=== PATIENT | male | born 1975 | race Caucasian/White ===

== ENCOUNTER 2016-11-14 19:57 | Inpatient (IN) | payer OTHER ==
[~2016-11-14] VITALS: Ht 180.3 cm; Wt 93.7 kg
[~2016-11-14 19:57] MED LIST: DELSYM PO; DEPAKOTE500 MG PO; GEODON40 MG PO; MOTRIN800 MG PO; PEN-VEE K,VEET500 MG PO; SEROQUEL100 MG PO; TENEX1 M1 PO; TYLENOL W/COD1 COMB1 PO
[2016-11-14 20:45] LABS: HEMATOCRIT 23.7 % (38.0-50.0); MCH 33.2 PG (29.0-34.0); MCHC 37.1 G/DL (30.0-36.0); MCV 89.4 FL (86-99); MEAN PLAT.VOLUME 9.9 uM^3 (9.0-12.4); PLATELET COUNT 240 K/uL (156-360); RBC DIS.WIDTH-CV 11.9 % (11.8-14.6); RBC DIS.WIDTH-SD 38.1 % (39-53); RED BLOOD COUNT 2.65 M/uL (4.00-5.50); WHITE BLOOD COUNT 16.4 K/uL (4.1-10.2)
[2016-11-14 20:54] LABS: CHLORIDE 96 mEq/L (99-109); POTASSIUM 4.4 mEq/L (3.7-5.4); SODIUM 130 mEq/L (136-147)
[2016-11-14 20:57] LABS: ANION GAP 12 MEQ/L (2-14)
[2016-11-14 20:59] LABS: THC CANNABINOIDS NEGATIVE (50 ng/mL)
[2016-11-14 20:59] LABS: SERUM ETHYL ALCOHOL < 10 mg/dL
[2016-11-14 21:00] LABS: AMPHETAMINE NEGATIVE (500 ng/mL); BARBITURATES NEGATIVE (200 ng/mL); BENZODIAZEPINES NEGATIVE (150 ng/mL); COCAINE NEGATIVE (150 ng/mL); INTERNAL CONTROLS VALID? YES; METHADONE NEGATIVE (200 ng/mL); METHAMPHETAMINE NEGATIVE (500 ng/mL); OPIATES (MORPHINE) NEGATIVE (100 ng/mL); OXYCODONE NEGATIVE (100 ng/mL); PHENCYCLIDINE NEGATIVE (25 ng/mL); PROPOXYPHENE NEGATIVE (300 ng/mL); TRICYCLIC ANTIDEPRESSANTS NEGATIVE (300 ng/mL)
[2016-11-14 21:00] LABS: GFR ESTIMATE (CALCULATED) 45 mL/min/
[2016-11-14 21:01] LABS: UREA NITROGEN (BUN) 30 mg/dL (9-23)
[2016-11-14 21:09] LABS: GLUCOSE 491 mg/dL (70-99)
[2016-11-14 22:55] LABS: POINT-OF-CARE METER ID UU14100415
[2016-11-15 03:04] VITALS: BP 118/86
[2016-11-15] MEDS ORDERED: LITHIUM CARBON300 M1 PO (03:12)
[2016-11-15] MEDS ORDERED: GLUCOPHAGE500 MG PO (03:25)
[2016-11-15] MEDS ORDERED: TRAZODONE HCL50 MG PO (03:38)
[2016-11-15] MEDS ORDERED: ADDERALL5 MG PO (04:51)
[2016-11-15] MEDS ORDERED: KEPPRA1000 MG PO (04:52)
[2016-11-15] MEDS ORDERED: CELEXA20 MG PO (04:54)
[2016-11-15] MEDS ORDERED: ABILIFY10 MG PO (04:55)
[2016-11-15 05:35] LABS: POINT-OF-CARE METER ID UU14188576
[2016-11-15 08:27] VITALS: BP 110/56
[2016-11-15 08:27] LABS: POINT-OF-CARE METER ID UU14188576
[2016-11-15 12:10] LABS: POINT-OF-CARE METER ID UU14188576
[2016-11-15 15:42] VITALS: BP 115/55
[2016-11-15 17:06] LABS: POINT-OF-CARE METER ID UU14188576
[2016-11-15 17:19] LABS: POINT-OF-CARE METER ID UU14188576
[2016-11-15 21:22] LABS: POINT-OF-CARE METER ID UU14188576
[2016-11-16 06:19] LABS: POINT-OF-CARE METER ID UU14188576; POINT-OF-CARE USER ID BHSSMG
[2016-11-16 07:06] VITALS: BP 105/52
[2016-11-16 07:32] LABS: EOSINOPHIL (%) 1.6 % (0-5); EOSINOPHIL COUNT 0.1 K/uL (0-0.3); IMMATURE GRANULOCYTE (%) 0.4 % (0.0-0.7); INSTRUMENT ABS NEUTROPHIL CT 2.8 K/uL; LYMPHOCYTE COUNT 1.8 K/uL (1.0-2.8); MCH 34.4 PG (29.0-34.0); MCHC 36.5 G/DL (30.0-36.0); MEAN PLAT.VOLUME 9.8 uM^3 (9.0-12.4); MONOCYTE (%) 7.2 % (3-12); MONOCYTE COUNT 0.4 K/uL (0-0.8); NEUTROPHIL (%) 55.4 % (45-76); NEUTROPHIL COUNT 2.8 K/uL (1.8-6.4); NRBC (%) 0.4 /100 WBC (0-0); PLATELET COUNT 180 K/uL (156-360); RBC DIS.WIDTH-CV 12.3 % (11.8-14.6); RBC DIS.WIDTH-SD 41.4 % (39-53); RED BLOOD COUNT 2.12 M/uL (4.00-5.50)
[2016-11-16 07:34] LABS: MCV 94.3 FL (86-99)
[2016-11-16 07:59] LABS: GLUCOSE 250 mg/dL (70-99); UREA NITROGEN (BUN) 15 mg/dL (9-23)
[2016-11-16 08:00] LABS: ANION GAP 6 MEQ/L (2-14); CHLORIDE 101 MEQ/L (99-109); SAMPLE HEMOLYSIS CHECK 0; SAMPLE ICTERIC CHECK 0; SAMPLE LIPEMIA CHECK 0
[2016-11-16 08:03] LABS: GFR ESTIMATE (CALCULATED) > 59 mL/min/; SODIUM 140 MEQ/L (136-147)
[2016-11-16 11:55] LABS: POINT-OF-CARE METER ID UU14188576; POINT-OF-CARE USER ID BHSTSA
[2016-11-16 15:29] VITALS: BP 146/63
[2016-11-16 17:07] LABS: POINT-OF-CARE METER ID UU14188576
[2016-11-16 20:47] LABS: POINT-OF-CARE METER ID UU14188576
[2016-11-17 06:09] LABS: POINT-OF-CARE METER ID UU14188576; POINT-OF-CARE USER ID ENVTLS63
[2016-11-17 07:29] VITALS: BP 101/61
[2016-11-17 08:22] LABS: EOSINOPHIL (%) 3.5 % (0-5); EOSINOPHIL COUNT 0.1 K/uL (0-0.3); HEMATOCRIT 19.8 % (38.0-50.0); IMMATURE GRANULOCYTE (%) 0.3 % (0.0-0.7); INSTRUMENT ABS NEUTROPHIL CT 1.2 K/uL; LYMPHOCYTE COUNT 1.5 K/uL (1.0-2.8); MCH 33.2 PG (29.0-34.0); MCHC 34.8 G/DL (30.0-36.0); MCV 95.2 FL (86-99); MEAN PLAT.VOLUME 9.6 uM^3 (9.0-12.4); MONOCYTE (%) 10.2 % (3-12); MONOCYTE COUNT 0.3 K/uL (0-0.8); NEUTROPHIL (%) 38.2 % (45-76); NEUTROPHIL COUNT 1.2 K/uL (1.8-6.4); PLATELET COUNT 186 K/uL (156-360); RBC DIS.WIDTH-CV 12.2 % (11.8-14.6); RBC DIS.WIDTH-SD 40.8 % (39-53); RED BLOOD COUNT 2.08 M/uL (4.00-5.50); WHITE BLOOD COUNT 3.1 K/uL (4.1-10.2)
[2016-11-17 11:13] LABS: IRON 55 MCG/DL (35-150)
[2016-11-17 12:02] LABS: Estimated Average Glucose 180 mg/dL (70-123); HEMOGLOBIN A1c (GLYCOHEMOGLOB) 7.9 % HGB (Below 5.7)
[2016-11-17 12:03] LABS: FERRITIN 180 NG/ML (22-322)
[2016-11-17 12:04] LABS: POINT-OF-CARE METER ID UU14188576; POINT-OF-CARE USER ID BHSMLB
[2016-11-17 12:08] LABS: INTERNAL CONTROL VALID? YES
[2016-11-17] MEDS ORDERED: KEFLEX500 MG PO (12:55)
[2016-11-17] MEDS ORDERED: NOVOLOG 10100 UNITS/ SC (12:56)
[2016-11-17] MEDS ORDERED: ADDERALL5 MG PO (12:58)
[2016-11-17] MEDS ORDERED: KEPPRA1000 MG PO (12:58)
[2016-11-17] MEDS ORDERED: TRAZODONE HCL50 MG PO (12:58)
[2016-11-17] MEDS ORDERED: CELEXA20 MG PO (12:58)
[2016-11-17] MEDS ORDERED: ABILIFY10 MG PO (12:59)
[2016-11-17] MEDS ORDERED: LITHIUM CARBON600 MG PO (12:59)
[2016-11-17 20:44] LABS: POINT-OF-CARE METER ID UU14188576; POINT-OF-CARE USER ID BHSMEW
[2016-11-18 00:11] VITALS: BP 115/67
[2016-11-18 06:04] VITALS: BP 126/77
[2016-11-18 06:10] LABS: POINT-OF-CARE METER ID UU14188576; POINT-OF-CARE USER ID ENVTLS63
[2016-11-18 07:40] VITALS: BP 126/77
[2016-11-18 07:43] LABS: HEMATOCRIT 26.1 % (38.0-50.0); MCHC 34.1 G/DL (30.0-36.0); MCV 93.9 FL (86-99); MEAN PLAT.VOLUME 9.4 uM^3 (9.0-12.4); NRBC (%) 0.6 /100 WBC (0-0); PLATELET COUNT 201 K/uL (156-360); RBC DIS.WIDTH-CV 13.1 % (11.8-14.6); RBC DIS.WIDTH-SD 42.4 % (39-53); WHITE BLOOD COUNT 3.6 K/uL (4.1-10.2)
[2016-11-18 07:44] LABS: RED BLOOD COUNT 2.78 M/uL (4.00-5.50)
[2016-11-18 08:12] LABS: ANION GAP 3 MEQ/L (2-14); CHLORIDE 103 MEQ/L (99-109); GFR ESTIMATE (CALCULATED) > 59 mL/min/; GLUCOSE 159 mg/dL (70-99); SAMPLE HEMOLYSIS CHECK 0; SAMPLE ICTERIC CHECK 0; SAMPLE LIPEMIA CHECK 0; SODIUM 142 MEQ/L (136-147); UREA NITROGEN (BUN) 9 mg/dL (9-23)
[2016-11-18 12:00] LABS: POINT-OF-CARE METER ID UU14188576
[2016-11-18 16:07] VITALS: BP 137/88
[2016-11-18 16:25] LABS: POINT-OF-CARE METER ID UU14188576
[2016-11-18 21:04] LABS: POINT-OF-CARE METER ID UU14188576
[2016-11-19 06:32] LABS: POINT-OF-CARE METER ID UU14188576
[2016-11-19 07:47] VITALS: BP 122/70
[2016-11-19 09:48] LABS: MCH 31.6 PG (29.0-34.0); MCHC 33.3 G/DL (30.0-36.0); MCV 94.9 FL (86-99); MEAN PLAT.VOLUME 9.9 uM^3 (9.0-12.4); PLATELET COUNT 251 K/uL (156-360); RBC DIS.WIDTH-CV 13.2 % (11.8-14.6); RBC DIS.WIDTH-SD 43.6 % (39-53); RED BLOOD COUNT 3.16 M/uL (4.00-5.50); WHITE BLOOD COUNT 4.1 K/uL (4.1-10.2)
[2016-11-19 12:33] LABS: POINT-OF-CARE METER ID UU14188576; POINT-OF-CARE USER ID ENVTLS63
[2016-11-19 16:12] VITALS: BP 113/78
[2016-11-19 16:39] LABS: POINT-OF-CARE METER ID UU14188576; POINT-OF-CARE USER ID BHSMEW
[2016-11-19 20:48] LABS: POINT-OF-CARE METER ID UU14188576; POINT-OF-CARE USER ID BHSMEW
[2016-11-20 06:14] LABS: POINT-OF-CARE METER ID UU14188576
[2016-11-20 07:21] VITALS: BP 117/82
[2016-11-20 12:02] LABS: POINT-OF-CARE METER ID UU14188576; POINT-OF-CARE USER ID BHSTSA
[2016-11-20 15:32] VITALS: BP 125/78
[2016-11-20 16:49] LABS: POINT-OF-CARE METER ID UU14188576; POINT-OF-CARE USER ID BHSMEW
[2016-11-21 07:38] VITALS: BP 126/71
[2016-11-21 09:40] LABS: ANION GAP 8 MEQ/L (2-14); CHLORIDE 103 MEQ/L (99-109); GFR ESTIMATE (CALCULATED) > 59 mL/min/; POTASSIUM 4.2 MEQ/L (3.7-5.4); SODIUM 141 MEQ/L (136-147); UREA NITROGEN (BUN) 12 mg/dL (9-23)
[2016-11-21 09:41] LABS: GLUCOSE 106 mg/dL (70-99)
[2016-11-21] MEDS ORDERED: DEPAKOTE500 MG PO (10:56)
[2016-11-21] MEDS ORDERED: GLUCOPHAGE500 MG PO (10:56)
[2016-11-21] MEDS ORDERED: FERROUS SULFAT325 MG PO (10:56)
== END 2016-11-21 13:10 | disposition home or self-care (01) | DRG 885 ==
LOC: EME → EDBD 19:57 → EDOF 11-15 00:01 → 1WEST 11-15 00:01 → ENRESERV 11-15 02:33 → 1WEST 11-15 02:33
PROVIDERS: Emergency Medicine; Internal Medicine; Psychiatry & Neurology Psychiatry
PROC: 30233N1 Transfusion of Nonautologous Red Blood Cells into Peripheral Vein, Percutaneous Approach (ICD-10-PCS; principal; 2016-11-17)
DX: F31.2 Bipolar disorder, current episode manic severe with psychotic features (principal); D62 Acute posthemorrhagic anemia; E11.65 Type 2 diabetes mellitus with hyperglycemia; S11.91XA Laceration without foreign body of unspecified part of neck, initial encounter; X78.1XXA Intentional self-harm by knife, initial encounter; Y92.821 Forest as the place of occurrence of the external cause; L08.9 Local infection of the skin and subcutaneous tissue, unspecified; E86.1 Hypovolemia; R60.0 Localized edema; T14.8 Other injury of unspecified body region; W57.XXXA Bitten or stung by nonvenomous insect and other nonvenomous arthropods, initial encounter; F10.10 Alcohol abuse, uncomplicated; F12.90 Cannabis use, unspecified, uncomplicated; F19.90 Other psychoactive substance use, unspecified, uncomplicated; F41.9 Anxiety disorder, unspecified; F17.200 Nicotine dependence, unspecified, uncomplicated; R56.9 Unspecified convulsions; Z59.0 Homelessness; Z91.14 Patient's other noncompliance with medication regimen; Z79.84 Long term (current) use of oral hypoglycemic drugs; Z83.3 Family history of diabetes mellitus
CPT/HCPCS: 80048; 80164; 82272; 82728; 82948; 83036; 83540; 84466; 85025; 85027; 86850; 86900; 86901; 86920; 86999; 90837; 97150 GO; 97165 GO; 99281; 99285; G0480; J1815; J7030; Q0177

== ENCOUNTER → 2017-08-04 | Outpatient (CLI) | payer MEDICARE ==
[~2017-08-04] MED LIST changes: +ABILIFY10 MG PO; +ADDERALL5 MG PO; +CELEXA20 MG PO; +FERROUS SULFAT325 MG PO; +GLUCOPHAGE500 MG PO; +KEFLEX500 MG PO; +KEPPRA1000 MG PO; +LITHIUM CARBON300 M1 PO; +LITHIUM CARBON600 MG PO; +NOVOLOG 10100 UNITS/ SC; +TRAZODONE HCL50 MG PO
== END | disposition home or self-care (01) ==
LOC: CDC 12:50
DX: R94.31 Abnormal electrocardiogram [ECG] [EKG] (principal)
CPT/HCPCS: 93000

== ENCOUNTER 2017-10-25 09:37 | Inpatient (IN) | payer OTHER ==
[~2017-10-25] VITALS: Ht 177.8 cm; Wt 95.3 kg
[2017-10-25 10:12] LABS: APPEARANCE CLEAR ((CLEAR)); BILIRUBIN NEGATIVE; BLOOD NEGATIVE; COLOR YELLOW ((YELLOW)); GLUCOSE (STRIP) 150; KETONES 5; LEUKOCYTES NEGATIVE; NITRITE NEGATIVE; PROTEIN (STRIP) NEGATIVE; SPECIFIC GRAVITY 1.025 (1.000-1.030); UCUL ADDED? NO; UROBILINOGEN 0.2 MG/DL (0.2-1.0)
[2017-10-25 10:25] LABS: AMPHETAMINE NEGATIVE (500 ng/mL); BARBITURATES NEGATIVE (200 ng/mL); BENZODIAZEPINES PRESUMPTIVE POSITIVE (150 ng/mL); BUPRENORPHINE NEGATIVE (10 ng/mL); COCAINE NEGATIVE (150 ng/mL); METHADONE NEGATIVE (200 ng/mL); METHAMPHETAMINE NEGATIVE (500 ng/mL); OPIATES (MORPHINE) NEGATIVE (100 ng/mL); OXYCODONE NEGATIVE (100 ng/mL); PHENCYCLIDINE NEGATIVE (25 ng/mL); PROPOXYPHENE NEGATIVE (300 ng/mL); THC CANNABINOIDS NEGATIVE (50 ng/mL); TRICYCLIC ANTIDEPRESSANTS NEGATIVE (300 ng/mL)
[2017-10-25 10:32] LABS: HEMATOCRIT 36.3 % (38.0-50.0); HEMOGLOBIN 13.2 G/DL (12.5-16.6); MCH 34.2 PG (29.0-34.0); MCHC 36.4 G/DL (30.0-36.0); PLATELET COUNT 216 K/uL (156-360); RBC DIS.WIDTH-CV 13.2 % (11.8-14.6); RBC DIS.WIDTH-SD 44.4 % (39-53); RED BLOOD COUNT 3.86 M/uL (4.00-5.50); WHITE BLOOD COUNT 5.5 K/uL (4.1-10.2)
[2017-10-25 10:43] LABS: CHLORIDE 108 mEq/L (99-109); POTASSIUM 4.5 mEq/L (3.7-5.4); SODIUM 140 mEq/L (136-147)
[2017-10-25 10:45] LABS: GLUCOSE 183 mg/dL (70-99)
[2017-10-25 10:48] LABS: CREATININE 1.2 mg/dL (0.6-1.3); GFR ESTIMATE (CALCULATED) > 59 mL/min/ (58.99-99999); SERUM ETHYL ALCOHOL < 10 mg/dL
[2017-10-25 10:49] LABS: UREA NITROGEN (BUN) 17 mg/dL (9-23)
[2017-10-25 11:25] LABS: BENZODIAZEPINES, URINE SCREEN Negative (200 ng/mL)
[2017-10-25 16:27] VITALS: BP 156/98
[2017-10-25] MEDS ORDERED: DEPAKOTE500 MG PO (17:10)
[2017-10-26 08:15] VITALS: BP 144/73
[2017-10-26 11:28] LABS: HEMOGLOBIN A1c (GLYCOHEMOGLOB) 6.9 % (Below 5.7)
[2017-10-26 16:33] VITALS: BP 137/88
[2017-10-27 07:49] VITALS: BP 115/59
[2017-10-27 16:32] VITALS: BP 100/57
[2017-10-28 08:04] VITALS: BP 113/57
[2017-10-28 16:34] VITALS: BP 109/60
[2017-10-29 10:03] VITALS: BP 103/59
== END 2017-10-29 13:28 | disposition other institution (70) | DRG 885 ==
LOC: EME 09:37 → 1WEST 13:26 → EDOF 13:26 → 1WEST 13:26 → ENRESERV 14:59 → 1WEST 15:56
PROVIDERS: Emergency Medicine; Psychiatry & Neurology Psychiatry
PROC: HZ2ZZZZ Detoxification Services for Substance Abuse Treatment (ICD-10-PCS; principal; 2017-10-25)
DX: F31.30 Bipolar disorder, current episode depressed, mild or moderate severity, unspecified (principal); F10.20 Alcohol dependence, uncomplicated; R45.851 Suicidal ideations; F17.200 Nicotine dependence, unspecified, uncomplicated; J45.909 Unspecified asthma, uncomplicated; Z91.5 Personal history of self-harm; Z91.14 Patient's other noncompliance with medication regimen
CPT/HCPCS: 80048; 80164; 81003; 83036; 84999; 85027; 90837; 97150 GO; 97165 GO; 99281; 99284; G0480